=== PATIENT | female | born 1970 | race Caucasian/White ===

== ENCOUNTER 2017-04-30 19:01 | Emergency (ER) | payer SELFPAY ==
[~2017-04-30] VITALS: Ht 165.1 cm; Wt 50.0 kg
[~2017-04-30 19:01] MED LIST: ALBU6.7H INH; AMOX500T PO; ASPI81TA82 PO; IBUP600 PO; IPRA17I INH; NITR.3 SL
[2017-04-30 19:09] VITALS: BP 117/76; PULSE 83; RESP 20; TEMP 98.5; O2SAT 97
[2017-04-30] MEDS ORDERED: RESP: ALBUTEROL 2.5 MG/IPRATROPIUM 0.5 MG NEB (SCH) NEB ONE (19:15)
[2017-04-30] MEDS ORDERED: AZITHROMYCIN 250 MG TAB PO ONE (19:15)
[2017-04-30] MEDS ORDERED: AZIT250T3 PO (19:19)
[2017-04-30] MEDS ORDERED: PRED-503 PO (19:19)
[2017-04-30] MEDS ORDERED: VENTAER INH (19:19)
--- NOTE | 2017-04-30 19:19 | PD ---
HPI Chief Complaint: Respiratory Symptoms Time Seen by Provider: 19:13 Travel History International Travel<30 days: No Contact w/Intl Traveler<30days: No Traveled to known affect area: No History of Present Illness HPI Is a 46-year-old woman presents emergent problem when of cough and congestion symptoms and shortness of breath ongoing for the past couple days. She recently got off an airplane from [place]. She states she feels like she 's been hung over she feels so bad so she drank vodka and beer today to see if it would help which it didn't. She states she is out of her asthma medicines. She normally sees a doctor in the emergency department a couple times a year for trouble with her breathing. She complains of some chest and abdominal pain from coughing. No other complaints. PFSH Past Medical History Narrative Medical Crohn's disease COPD and asthma Cancer: Yes (BREAST, OVARIAN) Cardiovascular Problems: Yes (PT STATES "I THINK I'VE HAD A HEART ATTACK") Chemotherapy: Yes Chest Pain: Yes COPD: Yes Diminished Hearing: No Myocardial Infarction: Yes ?: Not Menopausal: Yes Past Surgical History Hysterectomy: Yes Mastectomy: Yes (LUMPECTOMIES ovaries ) Social History Alcohol Use: Yes (beer tequila and whiskey daily) Tobacco Use: Yes (1 /2 ppd) Substance Use: Yes (MARIJUANA occ) Allergies-Medications (Allergen,Severity, Reaction): Coded Allergies: Sulfa (Sulfonamide Antibiotics) (Unverified Allergy, Severe, 04/30/17) codeine (Unverified Allergy, Unknown, 04/30/17) Reported Meds & Prescriptions Reported Meds & Active Scripts Active Ventolin Hfa 18 GM Inh (Albuterol Sulfate) 90 Mcg/Act Aer 2 Puff INH Q6H PRN Azithromycin 250 Mg Tab 250 Mg PO DAILY 4 Days Deltasone (Prednisone) 20 Mg Tab 60 Mg PO DAILY 5 Days Review of Systems Except as stated in HPI: all other systems reviewed are Neg Physical Exam Narrative GENERAL: 46-year-old woman, mildly intoxicated, in no acute distress. SKIN: Focused skin assessment warm/dry. HEAD: Atraumatic. Normocephalic. EYES: Pupils equal and round. No scleral icterus. No injection or drainage. ENT: No nasal bleeding or discharge. Mucous membranes pink and moist. NECK: Trachea midline. No JVD. CARDIOVASCULAR: Regular rate and rhythm. No murmur appreciated. RESPIRATORY: Frequent cough. Coarse breath sounds. Minimal wheezing. Good air movement. No respiratory distress. GASTROINTESTINAL: Abdomen soft, non-tender, nondistended. Hepatic and splenic margins not palpable. MUSCULOSKELETAL: No obvious deformities. No edema. NEUROLOGICAL: Awake and alert. No obvious cranial nerve deficits. Motor grossly within normal limits. Normal speech. PSYCHIATRIC: A little bit emotionally labile. Difficult to direct further history taking. Data Data Last Documented VS Vital Signs Date Time Temp Pulse Resp B/P (MAP) Pulse Ox O2 Delivery O2 Flow Rate FiO2 04/30/17 20:28 69 18 108/63 (78) 95 04/30/17 19:09 98.5 Orders Orders Albuterol-Ipratropium Neb (Duoneb Neb) (04/30/17 19:15) Azithromycin (Zithromax) (04/30/17 19:15) Electrocardiogram (04/30/17 ) Chest, Single Ap (04/30/17 ) [facility] Medical Decision Making Medical Screen Exam Complete: Yes Emergency Medical Condition: Yes Interpretation(s) My review of EKG: Normal sinus rhythm 63, normal axis, normal intervals, no acute ischemia. Differential Diagnosis Asthma exacerbation, bronchitis, pneumonia, other Narrative Course Medical decision-making new 46 year-old woman with cough congestion and increased shortness of breath symptoms suggestive of COPD exacerbation. Looks otherwise well. Recommend supportive treatment for COPD exacerbation. Diagnosis Primary Impression: Acute bronchitis Additional Impression: COPD exacerbation Additional Instructions: Take steroids as prescribed. Take albuterol as prescribed. Take antibiotics as prescribed. Follow-up with the primary physician in 2-4 days if not well. Return to the emergency department for any other new or worsening symptoms. Med/Other Pt SpecificInfo: Prescription(s) given Scripts Albuterol 18 GM Inh (Ventolin Hfa 18 GM Inh) 90 Mcg/Act Aer 2 PUFF INH Q6H Y for SHORTNESS OF BREATH, #1 INHALER 0 Refills Prov: Pato Siddiqui MD 04/30/17 Azithromycin (Azithromycin) 250 Mg Tab 250 MG PO DAILY for Infection for 4 Days, #4 TAB 0 Refills Prov: Pato Sididqui MD 04/30/17 Prednisone (Deltasone) 20 Mg Tab 60 MG PO DAILY for 5 Days, #15 TAB 0 Refills Prov: Pato Siddiqui MD 04/30/17 Disposition: 01 DISCHARGE HOME Condition: Stable Pato Siddiqui MD Apr 30, 2017 19:19
--- NOTE | 2017-04-30 19:43 | RADRPT ---
EXAM DATE/TIME: 04/30/2017 19:29 [facility] COMPARISON: CHEST SINGLE AP, April 28, 2015, 21:40. INDICATIONS : Cough. MEDICAL HISTORY : Chronic obstructive pulmonary disease. Crohn's disease. Carcinoma, cervical. SURGICAL HISTORY : None. ENCOUNTER: Initial ACUITY: 1 day PAIN SCORE: 5/10 LOCATION: Left chest FINDINGS: A single view of the chest demonstrates the lungs to be symmetrically aerated without evidence of mas s, infiltrate or effusion. The cardiomediastinal contours are unremarkable. Osseous structures are intact. CONCLUSION: No evidence of acute cardiopulmonary disease. Ubaldo Chris MD on April 30, 2017 at 19:40 Board Certified Radiologist. This report was verified electronically.
[2017-04-30 20:28] VITALS: BP 108/63
--- NOTE | 2017-05-01 12:53 | EKG ---
Date Performed: 04/30/2017 Time Performed: 19:16:48 PTAGE: 46 years EKG: Sinus rhythm NORMAL ECG PREVIOUS TRACING : 02/04/2015 08.08 No significant change from previous tracing noted. DOCTOR: Teja River Interpretating Date/Time 05/01/2017 12:51:48
== END 2017-04-30 20:34 | disposition home or self-care (01) ==
LOC: NEPE 19:01
DX: J44.0 Chronic obstructive pulmonary disease with (acute) lower respiratory infection (principal); J20.9 Acute bronchitis, unspecified; K50.90 Crohn's disease, unspecified, without complications; I25.2 Old myocardial infarction; Z79.899 Other long term (current) drug therapy; Z88.2 Allergy status to sulfonamides; Z88.5 Allergy status to narcotic agent
CPT/HCPCS: 71010; 93005; 99284